=== PATIENT | female | born 1985 | race Two or more races ===

== ENCOUNTER 2024-02-21 11:46 | Emergency (ER) | payer MEDICAID ==
[~2024-02-21] VITALS: Ht 162.6 cm; Wt 56.2 kg
[~2024-02-21 11:46] MED LIST: PRENCAP61 PO
[2024-02-21 12:26] VITALS: BP 144/71; PULSE 96; RESP 16; TEMP 97.8; O2SAT 100
[2024-02-21] MEDS: cefTRIAXone SOD 1,000 MG VL IM ONE (12:47)
[2024-02-21] MEDS ORDERED: CLIN1CAP70 PO (12:54)
[2024-02-21] MEDS ORDERED: NAPR-746 PO (12:54)
== END 2024-02-21 13:08 | disposition home or self-care (01) ==
LOC: ER 11:48
DX: K04.7 Periapical abscess without sinus (principal)
CPT/HCPCS: 96372; 99283; J0696

== ENCOUNTER 2024-05-23 08:58 | Emergency (ER) | payer MEDICAID ==
[~2024-05-23] VITALS: Ht 162.6 cm; Wt 56.8 kg
[~2024-05-23 08:58] MED LIST changes: +CLIN1CAP70 PO; +NAPR-746 PO
[2024-05-23 10:16] LABS: Alanine Aminotransferase 10 U/L (7-40); Albumin 4.7 g/dL (3.2-4.8); Alkaline Phosphatase 98 U/L (46-116); Anion Gap 11 (5-15); Aspartate Aminotransferase 11 U/L (13-40); BUN/Creatinine Ratio 8.6 (10.0-20.0); Blood Urea Nitrogen 6 mg/dL (9-23); Calcium 9.4 mg/dL (8.7-10.4); Carbon Dioxide 22 mmol/L (20-30); Chloride 107 mmol/L (98-107); Glucose 89 mg/dL (74-106); Potassium 3.5 mmol/L (3.5-5.1); Sodium 140 mmol/L (136-145)
[2024-05-23 10:17] LABS: Bilirubin, Total 0.5 mg/dL (0.2-1.0); Total Protein 7.4 g/dL (5.7-8.2)
[2024-05-23 10:30] LABS: Hematocrit 41.2 % (36.0-46.0); Hemoglobin 13.6 g/dL (12.2-16.2); Mean Corpuscular Hemoglobin 30.8 pg (28.0-32.0); Mean Corpuscular Hgb Conc. 33.1 g/dL (32.0-36.0); Platelet Count (auto) 347 10^3/uL (140-450); Red Blood Cells 4.43 10^6/uL (4.0-5.20); Red Cell Distribution Width 14.1 % (11.8-14.3); White Blood Cell 7.2 10^3/uL (4.4-10.8)
[2024-05-23 10:33] LABS: Band Neutrophils % (manual) 0; Basophils % (manual) 0 (0.0-2.0); Blast Cells 0; Eosinophils % (manual) 0 (0-7); Metamyelocytes % 0; Myelocytes % 0; Promyelocytes % 0; Reactive Lymphocytes 0
[2024-05-23 10:40] LABS: Acetaminophen < 2.0 UG/ML (10.0-20.0); Salicylate < 3.0 mg/dL (2.8-20.0)
[2024-05-23 11:15] LABS: Lymphocytes % (manual) 36 (10.0-50.0); Monocytes % (manual) 5 (0-12)
[2024-05-23 11:16] LABS: Platelet Estimate Adequate
[2024-05-23] MEDS ORDERED: SERT25TA84 PO (16:40)
[2024-05-23] MEDS: SERTRALINE HCL 50 MG TAB PO ONE (19:23)
[2024-05-23 19:24] VITALS: BP 148/82; PULSE 90; RESP 17; TEMP 98.5; O2SAT 98
== END 2024-05-23 19:28 | disposition home or self-care (01) ==
LOC: ER 08:58
DX: F41.9 Anxiety disorder, unspecified (principal); R45.851 Suicidal ideations; Z79.899 Other long term (current) drug therapy
CPT/HCPCS: 36415; 80053; 80329; 85007; 85027